=== PATIENT | female | born 1960 | race Caucasian/White ===

== ENCOUNTER 2017-06-30 12:28 | Day surgery (SDC) | payer OTHER ==
[2017-06-30] MEDS ORDERED: PROPOFOL 40 ML (17:07)
== END 2017-06-30 19:30 | disposition home or self-care (01) ==
LOC: GIL 12:28
DX: Z12.11 Encounter for screening for malignant neoplasm of colon (principal); K62.1 Rectal polyp; K64.8 Other hemorrhoids; E11.9 Type 2 diabetes mellitus without complications
CPT/HCPCS: 45385; 88305